=== PATIENT | female | born 1950 | race Caucasian/White ===

== ENCOUNTER → 2016-12-18 | Outpatient (CLI) | payer OTHER, MEDICARE | END | disposition home or self-care (01) | LOC: RD 15:25 → EDBD 15:25 | DX: M25.562 Pain in left knee (principal); M79.641 Pain in right hand ==

== ENCOUNTER → 2017-08-20 | Outpatient (CLI) | payer OTHER, MEDICARE | END | disposition home or self-care (01) | LOC: US 12:19 | PROC: B54CZZZ Ultrasonography of Left Lower Extremity Veins (ICD-10-PCS; principal; 2017-08-20) | DX: I83.819 Varicose veins of unspecified lower extremity with pain (principal) | CPT/HCPCS: Q0092 ==

== ENCOUNTER → 2018-07-01 | Outpatient (CLI) | payer OTHER, MEDICARE | END | disposition home or self-care (01) | LOC: RD 11:27 | DX: M25.551 Pain in right hip (principal); M25.512 Pain in left shoulder ==

== ENCOUNTER → 2018-09-19 | Outpatient (CLI) | payer OTHER, MEDICARE | END | disposition home or self-care (01) | LOC: US 10:45 | PROC: BW40ZZZ Ultrasonography of Abdomen (ICD-10-PCS; principal; 2018-09-19) | DX: R10.11 Right upper quadrant pain (principal) ==

== ENCOUNTER → 2018-10-25 | Outpatient (CLI) | payer OTHER, MEDICARE | END | disposition home or self-care (01) | LOC: CT 08:31 | PROC: BW201ZZ Computerized Tomography (CT Scan) of Abdomen using Low Osmolar Contrast (ICD-10-PCS; principal; 2018-10-25) | DX: R10.10 Upper abdominal pain, unspecified (principal); R10.11 Right upper quadrant pain | CPT/HCPCS: Q9967 ==